=== PATIENT | female | born 1980 ===

== ENCOUNTER → 2021-11-30 11:03 | Outpatient (CLI) | payer OTHER, SELFPAY ==
--- NOTE | 2021-11-30 | DI.MRI.S_ITS ---
PROCEDURE: MR FOOT RT WO CON INDICATIONS: specified joint disorders, right ankle and foot TECHNIQUE: Noncontrast sagittal T1 spin echo and T2 fast spin echo with fat saturation, long-axis T1 spin echo and T2 fast spin echo with fat saturation, short-axis T1 spin echo and T2 fast spin echo with fat saturation through the forefoot. COMPARISON: [facility], MR, MR FOOT RIGHT WITHOUT CONTRAST, 11/01/2020, 11:02. [facility] ([place]), CR, XR FOOT RT MIN 3V, 12/08/2020, 9:47. FINDINGS: Image quality: Excellent. Bones and joints: There is moderate T2 signal elevation within the distal phalanxes of the 1st, 2nd, and 3rd digits, which may simply reflect suboptimal fat saturation. Subchondral cyst formation within the 1st metatarsal head. Periarticular osteophyte formation at the 1st metatarsophalangeal joint. The sesamoid bones appear in expected positions, without internal edema. No metatarsophalangeal joint degeneration. No intraosseous lesions. Soft tissues: The visualized plantar foot muscles demonstrate normal signal and bulk. Visualized flexor and extensor tendons appear intact, without tenosynovitis. The distal insertions of the peroneus brevis and longus tendons appear intact. The principal Lisfranc ligament appears intact. Small amount of fluid between the 2nd and 3rd and 3rd and 4th metatarsal heads.. Sagittal images demonstrate no evidence for plantar plate tears. IMPRESSION: 1. Intermetatarsal bursitis. 2. 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 3. Probable artifact within the distal aspects of the 1st, 2nd, and 3rd digits, unless there are symptoms referable to these regions, in which case the abnormalities may represent contusion. Dictated by: Abel Garza M.D. on 11/30/2021 at 14:01 Approved by: Abel Garza M.D. on 11/30/2021 at 14:05
== END ==
PROVIDERS: PCP Family Medicine; Referring Provider Podiatrist; Visit Provider Podiatrist
DX: M25.871 Other specified joint disorders, right ankle and foot (principal); M19.071 Primary osteoarthritis, right ankle and foot; M77.51 Other enthesopathy of right foot and ankle
CPT/HCPCS: 73718